=== PATIENT | male | born 1980 | race Caucasian/White ===

== ENCOUNTER 2018-02-14 23:09 | Inpatient (IN) ==
[2018-02-14] MEDS ORDERED: Tdap (Boostrix) Vaccine 0.5 ML SYRINGE IM ONE (23:15)
--- NOTE | 2018-02-14 23:47 | Emergency Department Note ---
Disposition Clinical Impression: Abscess Cellulitis Qualifiers: Site of cellulitis: extremity Site of cellulitis of extremity: upper extremity Laterality: right Qualified Code(s): L03.113 - Cellulitis of right upper limb Disposition: Admitted As Inpatient Condition: Good Referrals: NONE,PCP [Primary Care Provider] - Forms: ED Satisfaction Letter General Adult HPI - General Chief complaint: ED Skin/Abscess/Foreign Body Stated complaint: abscess on arm Time Seen by Provider: 02/14/18 23:32 Source: patient Limitations: no limitations Nursing Notes Reviewed: Yes Vital Signs Reviewed: Yes - History of Present Illness HPI Narrative: 37-year-old male presents emergency department after a few days of right upper extremities pain. Patient states that there was an abscess there that ruptured. Patient is an IV drug user. Denies any fever. States that the redness and swelling got worse today going up into his right arm to his elbow. No recent antibiotics. Pain Scale: 8 - Related Data Previous Rx's Medication Instructions Recorded Ondansetron ODT [Zofran ODT] 4 mg SL Q8HR #14 tab.rapdis 05/23/15 Allergies Allergy/AdvReac Type Severity Reaction Status Date / Time No Known Allergies Allergy Verified 02/14/18 23:15 All systems ED: reviewed and negative except as stated. Review of Systems: As Per HPI Constitutional: Denies: fever Respiratory: Denies: cough, dyspnea Gastrointestinal: Denies: abdominal pain, nausea, vomiting Genitourinary: Denies: urgency, dysuria, frequency Musculoskeletal: Reports: other (Right upper extremity swelling, redness, erythema, pain). Denies: back pain Integumentary: Reports: other Past Medical History - Past Medical History Medical history: Reports: no medical history Surgical history: Reports: no surgical history Psychiatric history: Reports: anxiety - Social History Smoking Status: Current every day smoker Smokeless Tobacco Status: No Alcohol use: Reports: none Drug use: Reports: methamphetamine, IV Drug Use Physical Exam - General Limitations: no limitations General appearance: alert, in no apparent distress - Head Head exam: atraumatic, normocephalic - Eye Eye exam: Present: EOMI - ENT ENT exam: normal oropharynx, mucous membranes moist - Neck Neck exam: Present: trachea midline. Absent: tenderness, meningismus - Chest Chest inspection: Present: symmetric chest wall rise - Respiratory Respiratory exam: Present: normal lung sounds bilaterally. Absent: respiratory distress - Cardiovascular Cardiovascular exam: Present: tachycardia - Abdominal Exam Abdominal exam: Present: soft, Non-Tender. Absent: distention, guarding, rebound - Extremities Exam Extremities exam: Present: other (Right upper extremity is neurovascularly intact. There is an area of mild induration with some purulent drainage on the radial aspect of the right wrist. There is firmness of the right upper extremity that extends all the way up into the elbow. Patient still has full range of motion. Positive Jacinda's test) Course Vital Signs Temperature 98.4 F 02/14/18 23:12 Pulse Rate 104 02/14/18 23:12 Respiratory Rate 20 02/14/18 23:12 Blood Pressure 140/81 02/14/18 23:12 O2 Sat by Pulse Oximetry 98 02/14/18 23:12 Temperature 98.4 F 02/14/18 23:12 Pulse Rate 92 02/15/18 01:47 Respiratory Rate 14 02/15/18 01:47 Blood Pressure 116/72 02/15/18 01:47 O2 Sat by Pulse Oximetry 99 02/15/18 01:47 Oxygen Delivery Oxygen Delivery Room Air Medical Decision Making - MDM Narrative Medical decision making narrative: 37-year-old male presents to the emergency department with concern for abscess, cellulitis of the right upper extremity. Right upper extremity neurovascularly intact. We will obtain CT scan of the upper extremity and this revealed what is stated below. There was concern for possible phlegmon or abscess with ill- defined fluid tracking along the radial aspect of forearm just superficial to the muscular fascia. Concern for subcutaneous fat stranding compatible with cellulitis and fasciitis with possible myositis. Patient had leukocytosis of 14.3. CRP and sedimentation rate were mildly elevated. I spoke with orthopedic surgery regarding findings of the CT scan. They stated to start vancomycin, Zosyn, clindamycin. Patient was also given a liter of fluid here in the emergency department. Dr. Rodriguez agreed to follow patient on the floor. Patient was given Tylenol and Toradol for pain. Patient hemodynamically stable at time of admission to the hospital. Patient agreed with plan for admission. We have also obtain blood cultures. Upper Extremity CT 02/15/18 23:54 IMPRESSION: Focal small abscess identified level wrist measuring approximately 1.0 x 0.9 cm. However, extending proximally from that, is multi loculated, ill-defined fluid, tracking along the radial aspect of forearm just superficial to the muscular fascia, concerning for developing abscesses. Because of the ill definition, this is probably on this spectrum between phlegmon and abscess. There is extensive subcutaneous fat stranding, greater radially, along with effacement of the intramuscular fat planes, compatible with a background of cellulitis and fasciitis. Hypoattenuation of portions of the musculature suggest myositis as well. Soft tissue gas is not detected at this time. No radiopaque foreign bodies are identified. There is suggestion of fluid within the palmar bursae within the wrist, which suggests bursitis. Although these bursae communicate with the tenosynovial sheaths, definite tenosynovial fluid within the hand is not detected. Those findings would be better evaluated with MRI. No CT evidence of osteomyelitis is detected at this time. Findings were discussed with Dr. Fitzpatrick At 1:21 am on 02/15/2018. D/ / Keron Loera MD / Keron Loera MD Interpreting Provider: Keron Loera MD Vital Signs Temperature 98.4 F 02/14/18 23:12 Pulse Rate 104 02/14/18 23:12 Respiratory Rate 20 02/14/18 23:12 Blood Pressure 140/81 02/14/18 23:12 O2 Sat by Pulse Oximetry 98 02/14/18 23:12 Temperature 98.4 F 02/14/18 23:12 Pulse Rate 88 02/15/18 00:31 Respiratory Rate 18 02/15/18 00:31 Blood Pressure 125/77 02/15/18 00:31 O2 Sat by Pulse Oximetry 100 02/15/18 00:31 Oxygen Delivery Oxygen Delivery Room Air - Lab Data Result diagrams: 02/14/18 23:51 02/14/18 23:54 Lab Results 02/14/18 02/14/18 02/14/18 Range/Units 23:51 23:51 23:54 WBC 14.3 H (4.3-11.1) K/mcL RBC 4.88 (4.19-5.50) M/mcL Hgb 14.5 (12.9-16.9) g/dL Hct 42.6 (37.5-50.1) % MCV 87.3 (83.0-100.0) fL MCH 29.7 (28.0-33.3) pg MCHC 34.0 (31.6-35.5) g/dL RDW 13.1 (11.5-14.5) % Plt Count 365 (140-400) K/mcL MPV 9.5 (9.4-12.4) fL Immature Gran % 0.6 (0-4) % Seg Neutrophils % 73.4 % Lymphocytes % 18.2 % Monocytes % 7.1 % Eosinophils % 0.4 % Basophils % 0.3 % Neutrophils # 10.5 H (1.6-8.9) K/mcL Lymphocytes # 2.6 (0.6-4.6) K/mcL Monocytes # 1.0 (0.0-1.3) K/mcL Eosinophils # 0.1 (0.0-0.6) K/mcL Basophils # 0.1 (0.0-0.2) K/mcL Immature Plt Fraction 2.6 (1.1-6.1) % ESR 42 H (0-10) mm/hr Sodium 136 (136-145) mEq/L Potassium 3.3 L (3.5-5.1) mEq/L Chloride 99 (98-107) mEq/L Carbon Dioxide 28 (23-29) mEq/L BUN 15 (6-20) mg/dL Creatinine 0.88 (0.70-1.30) mg/dL Est GFR ( Amer) > 60 (> 60) Est GFR (Non-Af Amer) > 60 (> 60) BUN/Creatinine Ratio 17 (6-26) Glucose 93 (70-105) mg/dL Calculated Osmolality 283 (280-300) Lactic Acid (0.5-2.2) mmol/L Calcium 9.6 (8.6-10.3) mg/dL C-Reactive Protein 123 H (Less than 10) mg/L 02/15/18 Range/Units 00:45 WBC (4.3-11.1) K/mcL RBC (4.19-5.50) M/mcL Hgb (12.9-16.9) g/dL Hct (37.5-50.1) % MCV (83.0-100.0) fL MCH (28.0-33.3) pg MCHC (31.6-35.5) g/dL RDW (11.5-14.5) % Plt Count (140-400) K/mcL MPV (9.4-12.4) fL Immature Gran % (0-4) % Seg Neutrophils % % Lymphocytes % % Monocytes % % Eosinophils % % Basophils % % Neutrophils # (1.6-8.9) K/mcL Lymphocytes # (0.6-4.6) K/mcL Monocytes # (0.0-1.3) K/mcL Eosinophils # (0.0-0.6) K/mcL Basophils # (0.0-0.2) K/mcL Immature Plt Fraction (1.1-6.1) % ESR (0-10) mm/hr Sodium (136-145) mEq/L Potassium (3.5-5.1) mEq/L Chloride (98-107) mEq/L Carbon Dioxide (23-29) mEq/L BUN (6-20) mg/dL Creatinine (0.70-1.30) mg/dL Est GFR ( Amer) (> 60) Est GFR (Non-Af Amer) (> 60) BUN/Creatinine Ratio (6-26) Glucose (70-105) mg/dL Calculated Osmolality (280-300) Lactic Acid 1.1 (0.5-2.2) mmol/L Calcium (8.6-10.3) mg/dL C-Reactive Protein (Less than 10) mg/L
[2018-02-14] MEDS ORDERED: Ketorolac 15 MG/ML VIAL IVP ONE (23:53)
[2018-02-14] MEDS ORDERED: 0.9 % Sodium Chloride 1,000 ML IVC ONE (23:53)
[2018-02-15 00:06] LABS: Basophils # 0.1 K/mcL (0.0-0.2); Basophils % 0.3 %; Eosinophils # 0.1 K/mcL (0.0-0.6); Eosinophils % 0.4 %; Hematocrit 42.6 % (37.5-50.1); Hemoglobin 14.5 g/dL (12.9-16.9); Immature Granulocytes % 0.6 % (0-4); Immature Platelets 2.6 % (1.1-6.1); Lymphocytes # 2.6 K/mcL (0.6-4.6); Lymphocytes % 18.2 %; Mean Corpuscular Hemoglobin 29.7 pg (28.0-33.3); Mean Corpuscular Volume 87.3 fL (83.0-100.0); Mean Platelet Volume 9.5 fL (9.4-12.4); Monocytes % 7.1 %; Neutrophils # 10.5 K/mcL (1.6-8.9); Platelet Count 365 K/mcL (140-400); Red Blood Count 4.88 M/mcL (4.19-5.50); Red Cell Distribution Width 13.1 % (11.5-14.5); Segmented Neutrophils % 73.4 %
[2018-02-15 00:28] LABS: BUN/Creatinine Ratio 17 (6-26); Blood Urea Nitrogen 15 mg/dL (6-20); C-Reactive Protein 123 mg/L (Less than 10); Calcium 9.6 mg/dL (8.6-10.3); Carbon Dioxide 28 mEq/L (23-29); Chloride 99 mEq/L (98-107); Glucose 93 mg/dL (70-105); Osmolality,Calculated 283 (280-300); Potassium 3.3 mEq/L (3.5-5.1); Sodium 136 mEq/L (136-145); eGFR For African Americans > 60 (> 60); eGFR For Non-African Americans > 60 (> 60)
--- NOTE | 2018-02-15 00:52 | Emergency Department Note ---
Disposition Clinical Impression: Abscess Cellulitis Qualifiers: Site of cellulitis: extremity Site of cellulitis of extremity: upper extremity Laterality: right Qualified Code(s): L03.113 - Cellulitis of right upper limb Disposition: Admitted As Inpatient Condition: Good General Adult HPI - General Chief complaint: ED Skin/Abscess/Foreign Body Stated complaint: abscess on arm Time Seen by Provider: 02/14/18 23:32 Source: patient Limitations: no limitations Nursing Notes Reviewed: Yes Vital Signs Reviewed: Yes - History of Present Illness Pain Scale: 8 - Related Data Home Medications Medication Instructions Recorded Confirmed No Known Home Drugs 02/15/18 02/15/18 Allergies Allergy/AdvReac Type Severity Reaction Status Date / Time No Known Allergies Allergy Verified 02/14/18 23:15 Past Medical History - Past Medical History Medical history: Reports: no medical history Surgical history: Reports: no surgical history Psychiatric history: Reports: anxiety - Social History Smoking Status: Current every day smoker Smokeless Tobacco Status: No Alcohol use: Reports: none Drug use: Reports: methamphetamine, IV Drug Use Physical Exam - General Limitations: no limitations General appearance: alert, in no apparent distress Course Vital Signs Temperature 98.4 F 02/14/18 23:12 Pulse Rate 104 02/14/18 23:12 Respiratory Rate 20 02/14/18 23:12 Blood Pressure 140/81 02/14/18 23:12 O2 Sat by Pulse Oximetry 98 02/14/18 23:12 Temperature 98.6 F 02/15/18 04:15 Pulse Rate 86 02/15/18 04:15 Respiratory Rate 15 02/15/18 04:15 Blood Pressure 113/69 02/15/18 04:15 O2 Sat by Pulse Oximetry 98 02/15/18 04:15 Oxygen Delivery Oxygen Delivery Room Air Medical Decision Making - Lab Data Result diagrams: 02/14/18 23:51 02/14/18 23:54 Lab Results 02/14/18 02/14/18 02/14/18 Range/Units 23:51 23:51 23:54 WBC 14.3 H (4.3-11.1) K/mcL RBC 4.88 (4.19-5.50) M/mcL Hgb 14.5 (12.9-16.9) g/dL Hct 42.6 (37.5-50.1) % MCV 87.3 (83.0-100.0) fL MCH 29.7 (28.0-33.3) pg MCHC 34.0 (31.6-35.5) g/dL RDW 13.1 (11.5-14.5) % Plt Count 365 (140-400) K/mcL MPV 9.5 (9.4-12.4) fL Immature Gran % 0.6 (0-4) % Seg Neutrophils % 73.4 % Lymphocytes % 18.2 % Monocytes % 7.1 % Eosinophils % 0.4 % Basophils % 0.3 % Neutrophils # 10.5 H (1.6-8.9) K/mcL Lymphocytes # 2.6 (0.6-4.6) K/mcL Monocytes # 1.0 (0.0-1.3) K/mcL Eosinophils # 0.1 (0.0-0.6) K/mcL Basophils # 0.1 (0.0-0.2) K/mcL Immature Plt Fraction 2.6 (1.1-6.1) % ESR 42 H (0-10) mm/hr Sodium 136 (136-145) mEq/L Potassium 3.3 L (3.5-5.1) mEq/L Chloride 99 (98-107) mEq/L Carbon Dioxide 28 (23-29) mEq/L BUN 15 (6-20) mg/dL Creatinine 0.88 (0.70-1.30) mg/dL Est GFR ( Amer) > 60 (> 60) Est GFR (Non-Af Amer) > 60 (> 60) BUN/Creatinine Ratio 17 (6-26) Glucose 93 (70-105) mg/dL Calculated Osmolality 283 (280-300) Lactic Acid (0.5-2.2) mmol/L Calcium 9.6 (8.6-10.3) mg/dL C-Reactive Protein 123 H (Less than 10) mg/L 02/15/18 Range/Units 00:45 WBC (4.3-11.1) K/mcL RBC (4.19-5.50) M/mcL Hgb (12.9-16.9) g/dL Hct (37.5-50.1) % MCV (83.0-100.0) fL MCH (28.0-33.3) pg MCHC (31.6-35.5) g/dL RDW (11.5-14.5) % Plt Count (140-400) K/mcL MPV (9.4-12.4) fL Immature Gran % (0-4) % Seg Neutrophils % % Lymphocytes % % Monocytes % % Eosinophils % % Basophils % % Neutrophils # (1.6-8.9) K/mcL Lymphocytes # (0.6-4.6) K/mcL Monocytes # (0.0-1.3) K/mcL Eosinophils # (0.0-0.6) K/mcL Basophils # (0.0-0.2) K/mcL Immature Plt Fraction (1.1-6.1) % ESR (0-10) mm/hr Sodium (136-145) mEq/L Potassium (3.5-5.1) mEq/L Chloride (98-107) mEq/L Carbon Dioxide (23-29) mEq/L BUN (6-20) mg/dL Creatinine (0.70-1.30) mg/dL Est GFR ( Amer) (> 60) Est GFR (Non-Af Amer) (> 60) BUN/Creatinine Ratio (6-26) Glucose (70-105) mg/dL Calculated Osmolality (280-300) Lactic Acid 1.1 (0.5-2.2) mmol/L Calcium (8.6-10.3) mg/dL C-Reactive Protein (Less than 10) mg/L Critical Care Time Critical Care Time: Yes Total Critical Care Time: 35 Attestation: Critical care performed: Time is exclusive of separately billable procedures. Time includes: direct patient care, patient reassessment, coordination of patient care, interpretation of data (laboratory data, radiology data, and respiratory data), review of patient's medical records, medical consultation and documentation of patient care. Procedures included in critical care time: Procedures excluded from critical care time: Attestation Statement - Attestation Attestation: I, Delfino Fitzpatrick MD, personally evaluated this patient and discussed their management with the resident physician. I reviewed the resident's note and agree with the documented findings, medical decision making, and plan of care. 37-year-old male with history of IV drug abuse presents complaining of an abscess to the radial aspect of the distal right forearm which started 4 days prior to arrival. There has been swelling and redness of pain of the entire forearm with redness extending up onto the medial upper arm. Patient has had fevers up to 103. Yesterday the abscess ruptured and started draining spontaneously. He states he has continued pain and redness and swelling in the entire forearm which has not improved. No prior history of similar problems. No past medical problems. Patient is not diabetic. On examination patient is a well-developed well-nourished well-appearing male in no acute distress. He is alert and oriented 3. There is no cyanosis or diaphoresis. Breath sounds are clear and equal bilaterally. Heart regular rhythm. Abdomen soft and nontender with normal bowel sounds. There is an open wound from a spontaneous ruptured abscess on the radial aspect of the distal right forearm just above the wrist. There is moderate swelling and erythema of the entire right forearm extending up onto the medial aspect of the right upper arm. Patient has limited range of motion of his fingers due to pain. There is normal capillary refill and sensation intact. Labs reviewed. CT of the right arm obtained and results reviewed. Dr. Lancaster discussed the patient and CT findings with the orthopedist habilitation training specialist, Dr. Overton. The hospitalist, Dr. Sanders, was consulted and accepted admission of the patient.
[2018-02-15] MEDS ORDERED: Clindamycin 900 MG/50 ML 900 MG/50 ML IV.SOLN IVPB ONE (01:53)
[2018-02-15] MEDS ORDERED: Piperacillin/Tazobactam 3.375 GM in 0.9 % Sodium Chloride Mini Bag 100 ML IVPB ONE (01:53)
[2018-02-15] MEDS ORDERED: 0.9 % Sodium Chloride Mini Bag 100 ML ONE (02:13)
[2018-02-15] MEDS ORDERED: 0.9 % Sodium Chloride 1,000 ML IVC ONE (02:32)
[2018-02-15] MEDS ORDERED: Naloxone 0.4 MG/ML INJ IVP PRN (05:31)
--- NOTE | 2018-02-15 05:50 | Anesthesia Evaluation PreOp ---
Date of Encounter: 02/15/18 Time of Encounter: 05:49 - Past History Planned Operation: I&D Cardiac History: Denies any Significant Hx Pulmonary History: Smoker TACK PICKER History: Denies Any Significant HX Other Medical History: Denies Any Significant HX Anesthesia History: Past Anesthesia (none) Alcohol Use: none Drug use: methamphetamine, IV Drug Use Medications and Allergies No Known Home Drugs 02/15/18 [History] 3 Allergy/AdvReac Type Severity Reaction Status Date / Time No Known Allergies Allergy Verified 02/14/18 23:15 - Meds/Allergy Pre-op Review Medications Reviewed: Yes Allergies Reviewed: Yes Beta Blockers on Current Med List: No Anesthesia Results - Labs 02/14/18 23:51 02/14/18 23:54 Anesthesia Exam Vital Signs/O2 Sat, Most Current Temp Pulse Resp BP Pulse Ox 98.6 F 86 15 113/69 98 02/15/18 04:15 02/15/18 04:15 02/15/18 04:15 02/15/18 04:15 02/15/18 04:15 NPO (# of Hours): drank pop 1 hr ago - HEENT Pupil (Motor): Pupils equal, EOMI Mallampati: II Teeth: Normal Oral Opening: Greater than 3 - TACK PICKER LOC: Oriented TACK PICKER Motor: Normal RUE, Normal LUE, Normal RLE, Normal LLE, Normal Face TACK PICKER Sensory: Normal: RUE, LUE, RLE, LLE, Face - Cardiac Rhythm: Regular Murmur: None JVD: No Carotid Bruit: No - Pulmonary Breath Sounds: bilateral Clear Respiratory Effort: Symmetrical Anesthesia Assess/Plan ASA Score: 3 Modified Rutland Scale for Level of Consciousness: Cooperative, oriented, and tranquil Anesthetic Plan: General Autologous Blood: Yes Monitoring Plan: Standard Monitors Recovery Plan: PACU
[2018-02-15] MEDS ORDERED: *HR* Midazolam HCl 2 MG/2 ML VIAL ONE (05:52)
[2018-02-15] MEDS ORDERED: *HR* FentaNYL (PF) 100 MCG/2 ML VIAL ONE ×2 (05:52→07:27)
[2018-02-15] MEDS ORDERED: *HR* Propofol 200 MG/20 ML VIAL IVP ONE (05:52)
[2018-02-15] MEDS ORDERED: Dexamethasone 4 MG/ML VIAL ONE (05:54)
[2018-02-15] MEDS ORDERED: Lidocaine -MPF 2% 2 ML VIAL ONE (05:54)
[2018-02-15] MEDS ORDERED: *HR* Succinylcholine 200 MG/10 ML VIAL IVP ONE (05:54)
[2018-02-15] MEDS ORDERED: Ondansetron 4 MG/2 ML VIAL ONE (05:54)
[2018-02-15] MEDS ORDERED: 0.9 % Sodium Chloride 1,000 ML IVC SCH (06:00)
--- NOTE | 2018-02-15 06:01 | Orthopedic Consult Note ---
Date of Encounter: 02/15/18 Time of Encounter: 05:58 Assessment and Plan (1) Abscess Current Visit: Yes Status: Acute I did discuss the diagnosis in detail with the patient. He has a right forearm abscess. I recommendation was for incision, drainage, irrigation, debridement of the right forearm. The risks discussed included but were not limited to stiffness, bleeding, infection, blood clots, damage to neurovascular structures , tendons, ligaments, and bone. Also discussed was the risk of continued symptoms and possible need for further procedures. I did discuss the anesthesia risks including stroke, heart attack, and . I did discuss the reasonable, foreseeable postoperative course with the patient. He is aware that he may require multiple debridements. I splint is on the patient in simple terms and he wished to proceed and consent was obtained. History of Present Illness HPI: Mr. Jacob is a 37 year old male who says he is recovering IV drug user, and previously did heroin. He says he has been clean for 2 years. He said 4 days ago he is convinced to inject crystal method of the right forearm which he did. He started developing swelling and redness and presented to the emergency department with a right forearm abscess. He was admitted to the hospitalist and I was consulted to assist in the evaluation and management. He complains of isolated pain to the right radial forearm however this radiates proximally to the shoulder is with any movement and better with rest. No associated numbness, tingling, or other signs or symptoms or modifying factors. Past Med Surg Social Fam HX - Past Medical History Medical history: no medical history Psychiatric history: anxiety - Past Surgical History Surgical History: no surgical history - Social History Smoking Status: Current every day smoker Smokeless Tobacco Status: No Alcohol use: none Drug use: methamphetamine, IV Drug Use - Family History Mother Living Status: Still Living Hx Family Cardiac Disorders: Yes (Dad heart attack x5,) Hx Family Respiratory Disorders: No Hx Family Cancer: Yes Hx Family GI Disorders: No Hx Family Genitourinary Disorders: No Hx Family Endocrine Disorder: Yes (mother dm) Hx Family Musculoskeletal Disorders: No Hx Family Neuromuscular Disorders: No Hx Family Neurologic Disorders: No Hx Family HEENT Disorders: No Hx Family Autoimmune Disorders: No Hx Family Reproductive Disorders: No Hx Family Psychosocial Disorders: No Hx Family Medical Disorders: No Medications and Allergies No Known Home Drugs 02/15/18 [History] 3 Allergy/AdvReac Type Severity Reaction Status Date / Time No Known Allergies Allergy Verified 02/14/18 23:15 All Systems Reviewed: Constitutional and musculoskeletal systems were reviewed and are negative unless otherwise stated in history of present illness. Physical Exam - Constitutional Vitals: Temp Pulse Resp BP Pulse Ox 98.6 F 86 15 113/69 98 02/15/18 04:15 02/15/18 04:15 02/15/18 04:15 02/15/18 04:15 02/15/18 04:15 CONSTITUTIONAL -Vitals reviewed -The patient is well developed, well nourished, well groomed PSYCHIATRIC -Fully alert and oriented -Pleasant mood LEFT UPPER EXTREMITY Inspection shows a 3 cm raised lesion consistent with an abscess which is draining grossly purulent material. It tracks proximally. It is exquisitely tender to palpation with generalized swelling to the forearm. I can passively range the shoulder, elbow, and wrist without significant discomfort of those areas however does exacerbate the forearm pain. He could grossly flex and extend the digits though motion is limited due to pain and swelling. The fingertips are all grossly sensate and well-perfused, and the radial artery pulse is 2+. Diagnostic Imaging: I did personally review and interpret the CT scan of the left forearm which does show a fluid collection in the right forearm region and it does appear to be a small amount of gas. Results - Labs Result Diagrams: 02/14/18 23:51 02/14/18 23:54 Labs: Abnormal lab results WBC 14.3 K/mcL (4.3-11.1) H 02/14/18 23:51 Neutrophils # 10.5 K/mcL (1.6-8.9) H 02/14/18 23:51 ESR 42 mm/hr (0-10) H 02/14/18 23:51 Potassium 3.3 mEq/L (3.5-5.1) L 02/14/18 23:54 C-Reactive Protein 123 mg/L (Less than 10) H 02/14/18 23:54 All other labs normal. Consult Discharge Plan - Plan Referrals: NONE,PCP [Primary Care Provider] -
[2018-02-15] MEDS ORDERED: Bupivacaine/EPI 1:200k 0.5%PF 10 ML VIAL ONE (06:32)
[2018-02-15] MEDS ORDERED: Albuterol 2.5 MG/3 ML NEBULIZER IH ONE ×2 (06:36→06:39)
[2018-02-15] MEDS ORDERED: Albuterol 2.5 MG/3 ML NEBULIZER ONE (06:37)
[2018-02-15] MEDS ORDERED: *HR* OxyCODONE/APAP 5/325 TABLET PO PRN (06:39)
[2018-02-15] MEDS ORDERED: *HR* Labetalol 20 MG/4 ML SYRINGE IVP PRN (06:39)
[2018-02-15] MEDS ORDERED: Ketorolac 30 MG/ML VIAL IVP ONE (06:39)
[2018-02-15] MEDS ORDERED: *HR* Promethazine 25 MG/ML VIAL IVP PRN (06:39)
[2018-02-15] MEDS ORDERED: Acetaminophen IV 1,000 MG/100 ML INFUS..BTL IVPB ONE (06:39)
[2018-02-15] MEDS ORDERED: Ondansetron 4 MG/2 ML VIAL IVP ONE (06:39)
[2018-02-15] MEDS ORDERED: MORPHINE SUL Oral CONC 10 MG/0.5 ML ORAL.SYG SL PRN (06:39)
--- NOTE | 2018-02-15 07:46 | Internal Med History&Physical ---
Date of Encounter: 02/15/18 Time of Encounter: 05:00 Internal Medicine - H&P: HPI Admitted From: Home Plans for Post Hospital Care: Home History of present illness: Mr. Jacob is a 37 year old male Patient presented to the emergency room after a four-day camping trip in the [facility] with a right arm swelling and pain. He is a former heroin user, of which she used to snort, but he has been clean he says the last 2 years. About 4 days ago while camping with his friends he was convinced to try methamphetamine via IV. He says that the first few attempts on his left arm were unsuccessful, and then moved to his right arm and he says that they missed the vein. He then says his arm began swelling and was a little bit painful. He had a first aid kit in his car, which she used an ointment cream and some wraps but the swelling continued to progress over the four-day. And the pain moved from his wrist up to his shoulder. He denies nausea and, but has felt warm and has had shakes. The pain is severe as well. He had never done IV drugs before this time. CT of the right arm showed extensive fluid and edema extending along the forearm circumferentially and radially. There appeared to be loculated fluid at the level of the wrist along the radial aspect. No soft tissue gas detected. Orthopedic surgery was contacted from the ER, patient was admitted for antibiotic treatment and pain management. Past Med Surg Social Fam HX - Past Medical History Medical history: no medical history Psychiatric history: anxiety - Past Surgical History Surgical History: no surgical history - Social History Smoking Status: Current every day smoker Smokeless Tobacco Status: No Alcohol use: none Drug use: methamphetamine, IV Drug Use - Family History Mother Living Status: Still Living Hx Family Cardiac Disorders: Yes (Dad heart attack x5,) Hx Family Respiratory Disorders: No Hx Family Cancer: Yes Hx Family GI Disorders: No Hx Family Genitourinary Disorders: No Hx Family Endocrine Disorder: Yes (mother dm) Hx Family Musculoskeletal Disorders: No Hx Family Neuromuscular Disorders: No Hx Family Neurologic Disorders: No Hx Family HEENT Disorders: No Hx Family Autoimmune Disorders: No Hx Family Reproductive Disorders: No Hx Family Psychosocial Disorders: No Hx Family Medical Disorders: No Internal Medicine - H&P: Meds No Known Home Drugs 02/15/18 [History] 3 Allergy/AdvReac Type Severity Reaction Status Date / Time No Known Allergies Allergy Verified 02/14/18 23:15 All Systems PM: A 10-system review of systems was performed and is negative for pertinent findings except as documented above in the HPI. - Constitutional Vitals: Temp Pulse Resp BP Pulse Ox 98.6 F 86 15 113/69 98 02/15/18 04:15 02/15/18 04:15 02/15/18 04:15 02/15/18 04:15 02/15/18 04:15 General appearance: Present: cooperative, mild distress, A&O X 3, pleasant - Eye Eye exam: Present: EOMI, normal appearance - Neck Neck exam general surgery: Present: full ROM. Absent: tenderness - Respiratory Respiratory exam: Present: CTAB. Absent: decreased breath sounds, rales, rhonchi - Cardiovascular Cardiovascular exam: Present: RRR. Absent: diastolic murmur, rubs, systolic murmur - GI/Abdominal GI/Abdominal exam: Present: normal bowel sounds. Absent: firm, tenderness - Extremities Exam Additional comments: Extremities within normal limits, aside from right upper extremity. Swelling noted from elbow distally to the fingertips. Redness and warmth felt as well as the forearm. There is a small wound on the radial aspect proximal to the thumb. The entire limb is tender to the touch and movement exacerbates this pain. The left arm has some bruising but no pain with palpation and no swelling noted - Neurological Exam Neurological exam: Present: oriented X3. Absent: facial droop, speech deficit - Skin Additional comments: Erythema and swelling of the right upper extremity as noted above. Internal Med - H&P Results - Labs CBC & Chem 7: 02/14/18 23:51 02/14/18 23:54 - Impressions ITS Impressions Upper Extremity CT 02/15/18 23:54 IMPRESSION: Focal small abscess identified level wrist measuring approximately 1.0 x 0.9 cm. However, extending proximally from that, is multi loculated, ill-defined fluid, tracking along the radial aspect of forearm just superficial to the muscular fascia, concerning for developing abscesses. Because of the ill definition, this is probably on this spectrum between phlegmon and abscess. There is extensive subcutaneous fat stranding, greater radially, along with effacement of the intramuscular fat planes, compatible with a background of cellulitis and fasciitis. Hypoattenuation of portions of the musculature suggest myositis as well. Soft tissue gas is not detected at this time. No radiopaque foreign bodies are identified. There is suggestion of fluid within the palmar bursae within the wrist, which suggests bursitis. Although these bursae communicate with the tenosynovial sheaths, definite tenosynovial fluid within the hand is not detected. Those findings would be better evaluated with MRI. No CT evidence of osteomyelitis is detected at this time. Findings were discussed with Dr. Fitzpatrick At 1:21 am on 02/15/2018. D/ / Keron Loera MD / Keron Loera MD Interpreting Provider: Keron Loera MD - Assessment and plan (1) Abscess Current Visit: Yes Status: Acute Assessment and plan: As noted above patient has a right extremity fluid collection 1.0 x 0[address] which is compatible with small abscess. There is also multiloculated fluid extending proximally over the radial aspect of the forearm. There is also edema noted on CT as well. Patient also elevated ESR and CRP vitals are within normal limits. Orthopedic surgery consulted and will see the patient today. Continue antibiotics: Clindamycin, Zosyn and vancomycin Nothing by mouth in anticipation of possible surgery later today (2) Cellulitis Current Visit: Yes Status: Acute Assessment and plan: As above patient has right forearm abscess with associated cellulitis. Orthopedic surgery consulted. Continue antibiotics. Likely surgery later today Qualifiers: Site of cellulitis: extremity Site of cellulitis of extremity: upper extremity Laterality: right Qualified Code(s): L03.113 - Cellulitis of right upper limb (3) History of intravenous drug abuse Current Visit: Yes Status: Acute Assessment and plan: Patient denies any other use of IV drugs, as his drug of choice is snorting heroin. She states he had been clean for 2 years before this event. Encourage abstinence Consider social work consult for recommendations of treatment facilities. (4) Right arm pain Current Visit: Yes Status: Acute Assessment and plan: Likely secondary to cellulitis and abscess. We will attempt pain control with Oral active 30 mg every 6 hours. Because of patient's history of illicit drug use will try to avoid opioid pain meds. (5) Nicotine dependence Current Visit: Yes Status: Acute Assessment and plan: Patient states he smokes a pack of cigarettes a day. Consider nicotine patch for cravings. Qualifiers: Qualified Code(s): F17.210 - Nicotine dependence, cigarettes, uncomplicated (6) DVT prophylaxis Current Visit: Yes Status: Acute Assessment and plan: Because patient may go to surgery we will use SCDs instead of chemical prophylaxis. - Time Spent With Patient Total time spent is greater than 50% in coordination of care (as documented) at patient's floor/unit and/or counseling patient: Greater than 35 minutes
--- NOTE | 2018-02-15 08:16 | Orthopedic Operative Note ---
Date of procedure: 02/15/18 Procedure: OPERATIVE REPORT DATE OF PROCEDURE: 02/15/2018 SURGEON: Remington Overton MD SENIOR DATA WAREHOUSE DEVELOPER(S): There were no assistants PREOPERATIVE DIAGNOSIS: Right forearm abscess POSTOPERATIVE DIAGNOSIS: Same PROCEDURE: Incision, drainage, irrigation, and debridement of the right forearm abscess ANESTHESIA: Gen. anesthesia PREOPERATIVE ANTIBIOTICS: Vancomycin, Zosyn, clindamycin ESTIMATED BLOOD LOSS: 1 milliliters TOURNIQUET TIME: 16 minutes at 250 mmHg SPECIMENS: Swabs sent for aerobic and anaerobic cultures PREOPERATIVE NOTE AND INDICATIONS: This patient is a 37-year-old male who says he is a former IV drug user and has been clean for 2 years. He said 4 days ago he did inject crystal meth of the right forearm. He started to develop an abscess and was admitted for this abscess. I was consulted to assist in evaluation and management of this patient. My recommendation was for the above procedure in order to drain the abscess. The surgical plan was discussed with the patient. The risks, benefits, alternatives, and potential complications of this procedure were discussed with the patient including injury to veins, arteries, nerves, tendons, ligaments, and bone. Also discussed were the risks of infection, bleeding, pain, blood clots, the possible need for a blood transfusion, the possible need for further procedures, heart attack, stroke, and . Additional risks include the possible need for future debridements. All of this was explained in simple terms, and the patient verbalized understanding and wished to proceed. Consent was given to proceed with surgery. PROCEDURE: The patient was seen in the preoperative holding area where the identify and the consent were confirmed. The right forearm was marked. Final questions were answered. The patient was brought back to the operating room and placed supine on the operating room table. A huddle was performed with the patient and all vital surgical team members confirming patient identity, the correct procedure, and the correct operative site. Gen. anesthesia was administered. The right upper extremity was prepped and draped in the usual sterile fashion. A surgical time out was performed immediately preceding the incision with all personnel in the operating room to confirm patient identity, the correct operative site and extremity, correct radiographic studies, availability of appropriate surgical equipment, and agreement on the planned procedure. The limb was elevated and the tourniquet was inflated without exsanguination. On the radial aspect of the distal forearm there was a small punctate area of draining purulence. This was extended proximally by about 10 cm and dissection proceeded carefully through the subcutaneous tissue until the abscess cavity was identified. Copious amounts of grossly purulent material was evacuated and sent for culture. There was necrotic fat in the subcutaneous space which was sharply debrided. The abscess did not go deeper than the fascia. This was then copiously irrigated with 3 L of saline. The wound was partially closed in the central portion and over a Manjinder drain. A sterile dressing was applied. The instrument, sponge, and needle counts were correct after wound closure. POST OPERATIVE PLAN: Weight Bearing: Weightbearing as tolerated to the right upper extremity. DVT Prophylaxis: Ambulation Activity: Avoid aggressive activities with the right upper extremity. Wound Care: Daily dressing changes Pain Control: Per the hospitalist Was there an parts room assistant present: No Estimated blood loss (cc): 1
--- NOTE | 2018-02-15 09:14 | Anesthesia Evaluation Post Op ---
Date of Encounter: 02/15/18 Time of Encounter: 08:10 - Vital Signs Vital Signs: Last Vital Signs Temp 100.5 F H 02/15/18 08:20 Pulse 103 02/15/18 08:20 Resp 19 02/15/18 08:20 BP 123/70 02/15/18 08:20 Pulse Ox 94 02/15/18 08:20 - Lungs Lungs: Clear Ascult./Percussion - Airway Airway: Non-obstructed - Cardiovascular Regular Rate - Mental Status Mental Status: Alert & Oriented, Answers Appropriately - Pain Pain Scale: 4 - Nausea Vomiting Nausea Vomiting: Not Present - Hydration Hydration: Ice chips - Discharge PostOp Status: Transfer Patient to floor
[2018-02-15] MEDS: Piperacillin/Tazobactam 3.375 GM in 0.9 % Sodium Chloride Mini Bag 100 ML IVPB SCH ×2 (09:34→15:54)
[2018-02-15] MEDS: Clindamycin 900 MG/50 ML 900 MG/50 ML IV.SOLN IVPB SCH ×2 (09:35→15:53)
[2018-02-15] MEDS: Ketorolac 30 MG/ML VIAL IVP PRN (09:35)
[2018-02-15] MEDS ORDERED: *HR* FentaNYL (PF) 100 MCG/2 ML VIAL IVP SCH (10:00)
[2018-02-15] MEDS: 0.9 % Sodium Chloride 1,000 ML IVC SCH (10:58)
[2018-02-15] MEDS: *HR* OxyCODONE Immed Rel 5 MG TABLET PO PRN (11:00)
[2018-02-15] MEDS: Acetaminophen IV 1,000 MG/100 ML INFUS..BTL IVPB SCH ×2 (12:47→18:25)
[2018-02-16] MEDS: Acetaminophen IV 1,000 MG/100 ML INFUS..BTL IVPB SCH ×5 (00:25→23:15)
[2018-02-16] MEDS: 0.9 % Sodium Chloride 1,000 ML IVC SCH ×3 (00:30→23:29)
[2018-02-16] MEDS: Piperacillin/Tazobactam 3.375 GM in 0.9 % Sodium Chloride Mini Bag 100 ML IVPB SCH ×3 (00:43→17:22)
[2018-02-16] MEDS: Clindamycin 900 MG/50 ML 900 MG/50 ML IV.SOLN IVPB SCH ×4 (00:44→23:17)
--- NOTE | 2018-02-16 07:46 | Orthopedics Progress Note ---
Date of Encounter: 02/16/18 Time of Encounter: 07:43 - Assessment and Plan (1) Abscess Current Visit: Yes Status: Acute Subjective Interval history: S: Resting in bed comfortably. Significant improvement of the pain along the right forearm after I&D. O: Afebrile and vital signs are stable The Crouse drains in place with minimal drainage. Minimal surrounding erythema. Compartments are soft and compressible Tenderness as expected around the I&D site No pain with passive motion of the elbow or the wrist The patient can actively flex and extend all digits, extend the thumb, cross the index and long fingers, make an okay sign, and oppose the thumb. The fingertips are all grossly sensate and well-perfused, and the radial artery pulse is 2+. AM labs pending A: Post I&D of the right forearm, doing well P: At this point the patient is doing well clinically. Continue local wound care with daily dressing changes. We will pull Manjinder drain tomorrow Continue IV antibiotics for the next 24 hours Motion exercises to reduce the risk of stiffness Follow-up labs Objective Vital signs: Vital Signs Temp Pulse Resp BP Pulse Ox 02/16/18 06:45 97.5 F L 62 16 116/76 100 02/16/18 02:55 97.5 F L 56 15 112/71 99 02/15/18 20:35 98.2 F 55 14 106/67 99 02/15/18 15:46 97.5 F L 63 16 120/69 98 02/15/18 11:05 98.4 F 80 18 113/66 97 02/15/18 10:35 98.0 F 93 20 123/76 95 02/15/18 09:55 99 F 83 20 123/76 95 02/15/18 09:05 99.0 F 91 18 112/67 95 02/15/18 08:35 99.3 F 95 18 123/75 02/15/18 08:20 100.5 F H 103 19 123/70 94 02/15/18 08:05 98 18 120/73 95 02/15/18 07:55 99 17 130/76 94 02/15/18 07:45 100.6 F H 108 18 121/77 94 Intake and Output 02/15/18 02/15/18 02/16/18 15:59 23:59 07:59 Intake Total 500 / 500 1970 / 1969 600 / 600 Output Total 300 / 300 150 / 150 350 / 350 Balance 200 / 200 1820 / 1820 250 / 250 Intake: IV Fluids 500 / 500 1250 / 1250 600 / 600 0.9 % Sodium Chloride 1,000 ML 1000 / 1000 @ 100 mls/hr IVC .Q10H ROB Rx#: [id number] Ofirmev 1,000 mg/100 ml 1,000 100 / 100 100 / 100 200 / 200 mg In 100 ml @ 400 mls/hr IVPB Q6HR ROB Rx#:[id number] Cleocin Premix 900 MG/50 ML 900 50 / 50 50 / 50 50 / 50 mg In 50 ml @ 50 mls/hr IVPB Q8HR ROB Rx#:[id number] Zosyn 3.375 GM In 0.9 % Sodium 100 / 100 100 / 100 100 / 100 Chloride (Mini-Bag +) 100 ML @ 25 mls/hr IVPB Q8HR ROB Rx#: [id number] Vancocin 1,250 MG In 0.9 % 250 / 250 250 / 250 Sodium Chloride 250 ML @ 167 mls/hr IVPB Q12H ROB Rx#: [id number] Oral 0 / 0 720 / 720 Output: Urine 300 / 300 150 / 150 350 / 350 Other: Weight 72 kg Patient Weight 02/16/18 23:59 Weight 72 kg - Labs CBC & BMP: 02/14/18 23:51 02/14/18 23:54 Labs: Abnormal lab results WBC 14.3 K/mcL (4.3-11.1) H 02/14/18 23:51 Neutrophils # 10.5 K/mcL (1.6-8.9) H 02/14/18 23:51 ESR 42 mm/hr (0-10) H 02/14/18 23:51 Potassium 3.3 mEq/L (3.5-5.1) L 02/14/18 23:54 C-Reactive Protein 123 mg/L (Less than 10) H 02/14/18 23:54 - VTE Documentation of Mechanical Device: Intermittent pneumatic compression device Consult Discharge Plan - Plan Referrals: NONE,PCP [Primary Care Provider] -
[2018-02-16 08:09] LABS: Basophils % 0.3 %; Eosinophils # 0.2 K/mcL (0.0-0.6); Eosinophils % 1.5 %; Hematocrit 33.3 % (37.5-50.1); Immature Granulocytes % 0.6 % (0-4); Lymphocytes # 3.3 K/mcL (0.6-4.6); Lymphocytes % 34.2 %; Mean Corpuscular HGB Conc 33.6 g/dL (31.6-35.5); Mean Corpuscular Hemoglobin 29.7 pg (28.0-33.3); Mean Corpuscular Volume 88.3 fL (83.0-100.0); Mean Platelet Volume 10.1 fL (9.4-12.4); Monocytes # 0.8 K/mcL (0.0-1.3); Monocytes % 8.5 %; Neutrophils # 5.4 K/mcL (1.6-8.9); Platelet Count 332 K/mcL (140-400); Red Blood Count 3.77 M/mcL (4.19-5.50); Red Cell Distribution Width 13.4 % (11.5-14.5); Segmented Neutrophils % 54.9 %
[2018-02-16 08:10] LABS: Hemoglobin 11.2 g/dL (12.9-16.9)
[2018-02-16] MEDS: *HR* OxyCODONE Immed Rel 5 MG TABLET PO PRN (08:18)
[2018-02-16 08:32] LABS: BUN/Creatinine Ratio 23 (6-26); Blood Urea Nitrogen 13 mg/dL (6-20); Carbon Dioxide 21 mEq/L (23-29); Chloride 109 mEq/L (98-107); Glucose 117 mg/dL (70-105); Osmolality,Calculated 285 (280-300); Potassium 4.1 mEq/L (3.5-5.1); Sodium 137 mEq/L (136-145); eGFR For African Americans > 60 (> 60); eGFR For Non-African Americans > 60 (> 60)
[2018-02-16 08:41] LABS: C-Reactive Protein 49 mg/L (Less than 10)
[2018-02-16] MEDS: Ketorolac 30 MG/ML VIAL IVP PRN (11:35)
[2018-02-16] MEDS ORDERED: Nicotine 14 MG PATCH.TD24 TD SCH (14:44)
--- NOTE | 2018-02-16 18:34 | Internal Med Progress Note ---
Date of Encounter: 02/16/18 Time of Encounter: 18:32 - Assessment and plan (1) Abscess Current Visit: Yes Status: Acute Assessment and plan: Right upper extremity cellulitis with abscess after attempting IV substance drug. IV antibiotic clindamycin, Zosyn, as and vancomycin was restarted. Orthopedic surgeon was consulted who did perform I&D in the OR. Postop day 1. Patient is improving clinically. Daily dressing as per also advice. Will continue IV antibiotic for 1-2 more days. Blood and wound culture report is still awaited. Continue pain management (2) History of intravenous drug abuse Current Visit: Yes Status: Acute Assessment and plan: History of hairline snorting in the past but recently tried IV amphetamine for by his friend. viscose department worker consult for discharge plan. Encourage for abstain Is and also tobacco abuser therefore nicotine patch placed (3) DVT prophylaxis Current Visit: Yes Status: Acute Assessment and plan: SCDs. Patient is ambulating - Time Spent With Patient Total time spent is greater than 50% in coordination of care (as documented) at patient's floor/unit and/or counseling patient: less than 15 minutes - Subjective Interval history: Better pain in the hand specially at rest. Patient denies fever, chills, nausea, vomiting headache dizziness chest pain shortness of breath urinary bowel complaint - Constitutional Vitals: Temp Pulse Resp BP Pulse Ox 97.6 F 73 16 114/70 98 02/16/18 15:12 02/16/18 15:12 02/16/18 15:12 02/16/18 15:12 02/16/18 15:12 General appearance: Present: cooperative, mild distress, A&O X 3, pleasant Exam: General appearance: No acute distress, A&O X 3 Head exam: Atraumatic Eye exam: EOMI, PERRLA ENT exam: Moist oral mucosa Neck nontender, supple Respiratory exam: Clear to auscultation bilaterally Cardiovascular exam: Regular rate and rhythm, no systolic murmur Abdominal exam: Soft, nontender, nondistended, positive bowel sounds Extremities exam: No calf tenderness, no pedal edema Present: Right hand-tender , swelling, dressing in the place but better than yesterday. Hickory drain in place. Radial pulse palpable. Neurological exam: Alert, awake, oriented 3, CN II-XII intact, no focal deficits. No facial droop. Normal speech. Normal gait. Internal Medicine: Result - Labs CBC & Chem 7: 02/16/18 07:36 02/16/18 07:36 Labs: Short CBC 02/16/18 Range/Units 07:36 WBC 9.8 (4.3-11.1) K/mcL Hgb 11.2 L D (12.9-16.9) g/dL Hct 33.3 L (37.5-50.1) % Plt Count 332 (140-400) K/mcL Neutrophils # 5.4 (1.6-8.9) K/mcL BMP 02/16/18 07:36 Sodium 137 Potassium 4.1 Chloride 109 H Carbon Dioxide 21 L BUN 13 Creatinine 0.57 L Glucose 117 H Calcium 8.0 L - VTE Documentation of Mechanical Device: Intermittent pneumatic compression device Consult Discharge Plan - Plan Referrals: NONE,PCP [Primary Care Provider] -
[2018-02-16 21:45] LABS: Hematocrit 34.6 % (37.5-50.1); Hemoglobin 11.6 g/dL (12.9-16.9)
[2018-02-16] MEDS: Nicotine 2 MG GUM BC PRN (22:09)
[2018-02-17] MEDS: Piperacillin/Tazobactam 3.375 GM in 0.9 % Sodium Chloride Mini Bag 100 ML IVPB SCH ×3 (01:12→17:29)
[2018-02-17] MEDS: 0.9 % Sodium Chloride 1,000 ML IVC SCH (01:14)
[2018-02-17] MEDS: *HR* OxyCODONE Immed Rel 5 MG TABLET PO PRN ×3 (05:12→17:22)
[2018-02-17] MEDS: Acetaminophen IV 1,000 MG/100 ML INFUS..BTL IVPB SCH ×2 (07:27→12:12)
--- NOTE | 2018-02-17 09:00 | Internal Med Progress Note ---
Date of Encounter: 02/17/18 Time of Encounter: 08:58 - Assessment and plan (1) Abscess Current Visit: Yes Status: Acute Assessment and plan: Right upper extremity cellulitis with abscess after attempting IV substance drug. IV antibiotic clindamycin, Zosyn, as and vancomycin was started. Plan to the skin with antibiotic after obtaining culture report. Blood culture with no growth yet. Wound culture preliminary report suspected to come later today. Will follow wound culture and blood culture report tomorrow and make decision to discharge patient on oral versus IV antibiotic based on culture report. Will also follow orthopedic instruction. Continue daily dressing as per ortho advice. Continue pain management. (2) History of intravenous drug abuse Current Visit: Yes Status: Acute Assessment and plan: History of heroin snorting in the past but recently tried IV amphetamine . 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 Encourage for abstain Illicit drug . Patient is also tobacco abuser therefore nicotine patch placed (3) DVT prophylaxis Current Visit: Yes Status: Acute Assessment and plan: SCDs. Patient is ambulating - Time Spent With Patient Total time spent is greater than 50% in coordination of care (as documented) at patient's floor/unit and/or counseling patient: - Subjective Interval history: Better pain, swelling and finger movement and right hand Patient denies fever, chills, nausea, vomiting headache dizziness chest pain shortness of breath urinary bowel complaint. Review the lab and talk to microbiology about wound culture report-no growth yet but preliminary report might be available later today and possible more information tomorrow - Constitutional Vitals: Temp Pulse Resp BP Pulse Ox 97.6 F 75 16 120/74 98 02/17/18 06:46 02/17/18 06:46 02/17/18 06:46 02/17/18 06:46 02/17/18 06:46 General appearance: Present: cooperative, mild distress, A&O X 3, pleasant Exam: General appearance: No acute distress, A&O X 3 Head exam: Atraumatic Eye exam: EOMI, PERRLA ENT exam: Moist oral mucosa Neck nontender, supple Respiratory exam: Clear to auscultation bilaterally Cardiovascular exam: Regular rate and rhythm, no systolic murmur Abdominal exam: Soft, nontender, nondistended, positive bowel sounds Extremities exam: No calf tenderness, no pedal edema Present: Right upper extremity-decreased swelling, tenderness and better finger movement, dressing in the place. Manjinder drain in place Neurological exam: Alert, awake, oriented 3, CN II-XII intact, no focal deficits. No facial droop. Normal speech. Normal gait. Internal Medicine: Result - Labs CBC & Chem 7: 02/16/18 21:36 02/16/18 07:36 Labs: Short CBC 02/16/18 Range/Units 21:36 Hgb 11.6 L (12.9-16.9) g/dL Hct 34.6 L (37.5-50.1) % - VTE Documentation of Mechanical Device: Intermittent pneumatic compression device Consult Discharge Plan - Plan Referrals: NONE,PCP [Primary Care Provider] -
[2018-02-17] MEDS: Clindamycin 900 MG/50 ML 900 MG/50 ML IV.SOLN IVPB SCH ×2 (09:30→17:28)
[2018-02-17] MEDS: Ketorolac 30 MG/ML VIAL IVP PRN (10:43)
[2018-02-17] MEDS: Nicotine 2 MG GUM BC PRN (10:44)
[2018-02-17 15:05] VITALS: BP 107/64
[2018-02-17] MEDS ORDERED: Acetaminophen 325 MG TABLET PO SCH (18:00)
[2018-02-17] MEDS ORDERED: Aminoglycoside Consult 1 EACH MC ONE (18:59)
--- NOTE | 2018-02-17 19:15 | Discharge Summary ---
- NOTES TO OUTPATIENT PROVIDER Notes to Outpatient Provider: follow with PCP- final culture report- 1-2 days and to start appropriate abx. Follow with orthopedic in 1-2 days Orders not resulted at time of discharge: Pending orders 02/15/18 07:34 Culture,Anaerobic [RM] Routine Culture,Wound [RM] Routine 02/18/18 04:00 BMP [Basic Metabolic Panel] AM 0400 Complete Blood Count [HEME] AM 0400 02/18/18 11:00 Vancomycin,Trough Timed Date of Encounter: 02/20/18 Time of Encounter: 18:50 - Discharge Diagnosis (1) Abscess Priority: Primary Status: Acute Assessment and Plan: Right upper extremity cellulitis with abscess after attempting IV substance drug. IV antibiotic clindamycin, Zosyn, as and vancomycin was started. Blood culture with no growth but wound culture is still cooking. Talk to microbiology who informed possible sensitivity report available in next 24 hour. Therefore decided to continue IV antibiotic for now and plan to discharge on appropriate oral versus IV medication based on sensitivity. Nurse informed me that patient leaving AMA and by the time I reached to patient room he already left AMA after pulling out his IV line. Nurse advice to follow with PCP and orthopedic surgeon as soon as possible to continue the treatment. Patient has severe infection in her right dominant hand and rate chances to lose functional ability if not treated adequately. (2) History of intravenous drug abuse Priority: Secondary Status: Acute Assessment and Plan: Need rehabilitation with the help of PCP. Talked to the patient briefly during his stay Hospital course: Please see details in the diagnosis part of this summary - Time Spent with Patient Total time spent providing and/or coordinating discharge services: - Discharge Medications Home Medications: No Known Home Drugs 02/15/18 [History] Allergies/Adverse Reactions: 3 Allergy/AdvReac Type Severity Reaction Status Date / Time No Known Allergies Allergy Verified 02/14/18 23:15 Date of admission: 02/15/18 05:31 Primary care physician: PCP NONE Consults: 02/15/18 09:28 Consult to Gift Packer [CONS] Routine Reason for SW Consult: Discharge plan - Constitutional Vitals: Temp Pulse Resp BP Pulse Ox 97.8 F 84 16 107/64 97 02/17/18 15:02 02/17/18 15:02 02/17/18 15:02 02/17/18 15:02 02/17/18 15:02 Exam: Not performedas pt left before I reached - Patient Status Disposition: Left Against Medical Advice Condition: Undetermined Overall status at discharge: patient is not back to baseline - Discharge Instructions Follow Up With: NONE,PCP [Primary Care Provider] - - Diet and Activity Activity: other Diet: other - VTE Documentation of Mechanical Device: Intermittent pneumatic compression device
== END 2018-02-17 19:00 | disposition left against medical advice (07) | DRG 383 ==
LOC: 3ANU 23:09 → EMEROO 23:09 → 3ANU 02-15 04:15
PROVIDERS: ADMIT Internal Medicine; ATTEND Internal Medicine